=== PATIENT | female | born 1985 | race Caucasian/White ===

== ENCOUNTER 2019-10-28 10:12 | Emergency (ER) | payer OTHER ==
[~2019-10-28] VITALS: Ht 167.6 cm; Wt 81.7 kg
[~2019-10-28 10:12] MED LIST: LEVFLO500 PO; Norco 5-325 Ta1 EACH PO; Pyridium200 MG PO
[2019-10-28] MEDS ORDERED: IBUP600 PO (12:14)
[2019-10-28] MEDS ORDERED: Amoxicillin500 MG PO (12:14)
[2019-10-28] MEDS ORDERED: Norco 5-325 Ta1 EACH PO (12:14)
== END 2019-10-28 12:33 | disposition home or self-care (01) ==
LOC: ER 10:12
DX: K04.7 Periapical abscess without sinus (principal); F17.200 Nicotine dependence, unspecified, uncomplicated; Z79.899 Other long term (current) drug therapy
CPT/HCPCS: 99282

== ENCOUNTER 2020-06-24 12:54 | Emergency (ER) | payer OTHER ==
[~2020-06-24] VITALS: Ht 165.1 cm; Wt 90.7 kg
[~2020-06-24 12:54] MED LIST changes: +Amoxicillin500 MG PO; +IBUP600 PO
[2020-06-24 13:52] LABS: BASOPHILS ABSOLUTE AUTO 0.07 K/mm3 (0.00-0.23); BASOPHILS PERCENT AUTO 0 % (0-2); EOSINOPHILS PERCENT AUTO 0 % (0-6); Hematocrit 44.2 % (33.0-51.0); Hemoglobin 14.4 g/dL (11.5-16.0); IMMATURE GRAN ABSOLUTE AUTO 0.11 K/mm3 (0.00-0.10); IMMATURE GRAN PERCENT AUTO 1 % (0-1); LYMPHOCYTES ABSOLUTE AUTO 2.17 K/mm3 (0.84-5.20); LYMPHOCYTES PERCENT AUTO 9 % (21-46); MONOCYTES ABSOLUTE AUTO 1.61 K/mm3 (0.16-1.47); MONOCYTES PERCENT AUTO 7 % (4-13); Mean Corpuscular HGB Conc 32.6 g/dL (31.5-36.5); Mean Corpuscular Volume 92 fL (80-100); Mean Platelet Volume 10.4 fL (9.1-12.4); NEUTROPHILS ABSOLUTE AUTO 19.76 K/mm3 (1.96-9.15); NEUTROPHILS PERCENT AUTO 83 % (41-73); Platelet Count 307 K/mm3 (150-400); RDW Coefficient Variation 12.8 % (11.7-14.2); RDW Standard Deviation 43.7 fL (35.1-46.3); White Blood Cell Count 23.72 K/mm3 (4.00-11.30)
[2020-06-24 14:13] LABS: Alanine Aminotransfer (ALT/SGP 21 U/L (12-78); Albumin, Blood 3.5 g/dL (3.4-5.0); Albumin/Globulin Ratio 0.6 (0.8-1.8); Alk Phos 78 U/L (50-136); Anion Gap 10 mmol/L (6-16); Aspartate Aminotrans (AST/SGOT 13 U/L (12-37); Bilirubin, Total 0.5 mg/dL (0.1-1.0); Blood Urea Nitrogen 7 mg/dL (8-24); CO2, Blood 20 mmol/L (21-32); Chloride, Blood 102 mmol/L (98-108); Creatinine, Blood 0.64 mg/dL (0.40-1.00); Glomerular Filtration Rate >60 (60-); Glucose, Blood 105 mg/dL (70-99); Potassium, Blood 3.7 mmol/L (3.5-5.5); Sodium, Blood 132 mmol/L (136-145); Total Protein, Blood 9.5 g/dL (6.4-8.2)
[2020-06-24] MEDS ORDERED: AMOCLA875 PO (16:26)
== END 2020-06-24 17:40 | disposition home or self-care (01) ==
LOC: ER 12:54
PROVIDERS: Emergency Medicine
DX: J36 Peritonsillar abscess (principal); F17.200 Nicotine dependence, unspecified, uncomplicated; Z20.828 Contact with and (suspected) exposure to other viral communicable diseases; Z79.899 Other long term (current) drug therapy
CPT/HCPCS: 70491; 71045; 80053; 84484; 85025; 86308; 87081; 87147; 87430; 93005; 93010; 96361; 96374; 96375; 99285-25; J1100; J1885; J2405; J7030; J7120; Q9967; U0002

== ENCOUNTER 2025-09-16 05:14 | Emergency (ER) | payer OTHER ==
[~2025-09-16] VITALS: Ht 165.1 cm; Wt 99.8 kg
[~2025-09-16 05:14] MED LIST changes: +AMOCLA875 PO; +CEPH500 PO; +DECADRON6 MG PO; +Pyridium100 MG PO
[2025-09-16] MEDS ORDERED: OxyCODONE 5 mg/Acetamin 325 mg TABLET PO ONE (06:00)
[2025-09-16] MEDS ORDERED: Percocet 5-3251 EACH PO (07:00)
[2025-09-16] MEDS ORDERED: IBUP600 PO (07:00)
[2025-09-16] MEDS ORDERED: CYCL10 PO (07:00)
[2025-09-16 07:34] VITALS: BP 139/62
== END 2025-09-16 07:37 | disposition home or self-care (01) ==
LOC: ER 05:14
DX: S89.91XA Unspecified injury of right lower leg, initial encounter (principal); F17.210 Nicotine dependence, cigarettes, uncomplicated; Z98.890 Other specified postprocedural states; Z79.899 Other long term (current) drug therapy; W01.0XXA Fall on same level from slipping, tripping and stumbling without subsequent striking against object, initial encounter
CPT/HCPCS: 73562-RT; 99283-25; A9270